=== PATIENT | female | born 1965 | race Hispanic/Latino ===

== ENCOUNTER 2016-12-02 00:14 | Emergency (ER) | payer OTHER ==
[~2016-12-02] VITALS: Ht 167.6 cm; Wt 83.0 kg
[~2016-12-02 00:14] MED LIST: ADVAIR 250/501 DISK IH; ANTIVERT25 MG PO; BACTRIM,SEPT1 TABLET PO; FIORICET 50-301 EACH PO; KEFLEX500 MG PO; PROMETHAZINE HC25 M1 PO; TESSALON PERLE100 MG PO; VENTOLIN HFA18 GM IH
[2016-12-02 01:00] LABS: HEMATOCRIT 37.1 % (36.0-46.0); MCH 27.6 PG (29.0-34.0); MCHC 33.2 G/DL (30.0-36.0); MCV 83.2 FL (83-99); MEAN PLAT.VOLUME 9.5 uM^3 (9.5-12.4); PLATELET COUNT 331 K/uL (156-360); RBC DIS.WIDTH-CV 13.7 % (11.8-14.6); RBC DIS.WIDTH-SD 41.7 % (39-53); RED BLOOD COUNT 4.46 M/uL (3.80-5.20); WHITE BLOOD COUNT 11.2 K/uL (4.1-10.2)
[2016-12-02 01:14] LABS: CHLORIDE 111 mEq/L (99-109); POTASSIUM 4.1 mEq/L (3.7-5.4); SODIUM 142 mEq/L (136-147)
[2016-12-02 01:16] LABS: GLUCOSE 117 mg/dL (70-99)
[2016-12-02 01:17] LABS: ANION GAP 12 MEQ/L (2-14)
[2016-12-02 01:18] LABS: TOTAL BILIRUBIN 0.2 mg/dL (0.0-1.0)
[2016-12-02 01:20] LABS: ALKALINE PHOSPHATASE 122 IU/L (3-129); GFR ESTIMATE (CALCULATED) > 59 mL/min/
[2016-12-02 01:21] LABS: UREA NITROGEN (BUN) 17 mg/dL (9-23)
[2016-12-02 01:23] LABS: LIPASE 39 U/L (1.0-51.0)
[2016-12-02 01:32] LABS: QUANTITATIVE HCG < 4.0 MIU/ML
[2016-12-02 01:34] LABS: TROP-I INTERPRETATION NEGATIVE; TROPONIN-I < 0.01 ng/mL (0.0-0.30)
[2016-12-02 03:06] LABS: ADD MIUA? YES; BILIRUBIN NEGATIVE; BLOOD SMALL; COLOR YELLOW ((YELLOW)); GLUCOSE (STRIP) NEGATIVE; KETONES NEGATIVE; LEUKOCYTES NEGATIVE; NITRITE NEGATIVE; PROTEIN (STRIP) NEGATIVE; SPECIFIC GRAVITY 1.025 (1.000-1.030); UROBILINOGEN 0.2 MG/DL (0.2-1.0)
[2016-12-02 03:14] LABS: ADD MEDTOX COMMENT Y; AMPHETAMINE NEGATIVE (500 ng/mL); BARBITURATES NEGATIVE (200 ng/mL); BENZODIAZEPINES NEGATIVE (150 ng/mL); COCAINE NEGATIVE (150 ng/mL); INTERNAL CONTROLS VALID? YES; METHADONE NEGATIVE (200 ng/mL); METHAMPHETAMINE NEGATIVE (500 ng/mL); OPIATES (MORPHINE) NEGATIVE (100 ng/mL); OXYCODONE NEGATIVE (100 ng/mL); PHENCYCLIDINE NEGATIVE (25 ng/mL); PROPOXYPHENE NEGATIVE (300 ng/mL); THC CANNABINOIDS PRESUMPTIVE POSITIVE (50 ng/mL); TRICYCLIC ANTIDEPRESSANTS NEGATIVE (300 ng/mL)
[2016-12-02 03:18] LABS: BACTERIA RARE /HPF; EPITHELIAL CELLS RARE /HPF; HYALINE CASTS 0-5 /LPF; MUCUS TRACE /LPF; UCUL ADDED? NO; WHITE BLOOD CELLS 0-5 /HPF (0-5)
[2016-12-02 03:38] VITALS: BP 124/92
== END 2016-12-02 03:37 | disposition home or self-care (01) ==
LOC: EME 00:14
PROVIDERS: Emergency Medicine
DX: R51 Headache (principal); R55 Syncope and collapse; E86.0 Dehydration; F12.10 Cannabis abuse, uncomplicated; R06.00 Dyspnea, unspecified; M54.2 Cervicalgia; R53.1 Weakness; R20.0 Anesthesia of skin; R31.9 Hematuria, unspecified; Z91.81 History of falling; J45.909 Unspecified asthma, uncomplicated; F17.200 Nicotine dependence, unspecified, uncomplicated
CPT/HCPCS: 70450; 71020; 80053; 81003; 83690; 84484; 84702; 84999; 85027; 93005; 99281; 99284; J3030

== ENCOUNTER 2017-01-09 15:07 | Emergency (ER) | payer OTHER ==
[~2017-01-09] VITALS: Ht 170.2 cm; Wt 82.0 kg
[2017-01-09 17:32] LABS: HEMATOCRIT 36.8 % (36.0-46.0); MCH 27.7 PG (29.0-34.0); MCHC 33.2 G/DL (30.0-36.0); MCV 83.4 FL (83-99); MEAN PLAT.VOLUME 9.2 uM^3 (9.5-12.4); PLATELET COUNT 376 K/uL (156-360); RBC DIS.WIDTH-CV 14.4 % (11.8-14.6); RBC DIS.WIDTH-SD 43.8 % (39-53); RED BLOOD COUNT 4.41 M/uL (3.80-5.20); WHITE BLOOD COUNT 10.2 K/uL (4.1-10.2)
[2017-01-09 17:32] LABS: ADD MIUA? YES; BILIRUBIN NEGATIVE; BLOOD NEGATIVE; COLOR YELLOW ((YELLOW)); GLUCOSE (STRIP) NEGATIVE; KETONES NEGATIVE; LEUKOCYTES NEGATIVE; NITRITE NEGATIVE; PROTEIN (STRIP) NEGATIVE; UROBILINOGEN 0.2 MG/DL (0.2-1.0)
[2017-01-09] MEDS ORDERED: LATUDA40 MG PO ×2 (17:42→17:44)
[2017-01-09 17:43] LABS: CHLORIDE 107 mEq/L (99-109); POTASSIUM 3.8 mEq/L (3.7-5.4); SODIUM 139 mEq/L (136-147)
[2017-01-09] MEDS ORDERED: ZOLPIDEM TARTRA10 MG PO (17:43)
[2017-01-09] MEDS ORDERED: CLONAZEPAM0.5 MG PO (17:43)
[2017-01-09 17:45] LABS: GLUCOSE 87 mg/dL (70-99)
[2017-01-09 17:46] LABS: ANION GAP 8 MEQ/L (2-14)
[2017-01-09 17:48] LABS: GFR ESTIMATE (CALCULATED) > 59 mL/min/
[2017-01-09 17:49] LABS: UREA NITROGEN (BUN) 11 mg/dL (9-23)
[2017-01-09 17:49] LABS: BACTERIA NONE SEEN /HPF; EPITHELIAL CELLS RARE /HPF; MUCUS TRACE /LPF; RED BLOOD CELLS 0-5 /HPF (0-5); UCUL ADDED? NO; WHITE BLOOD CELLS 0-5 /HPF (0-5)
[2017-01-09 17:56] LABS: QUANTITATIVE HCG < 4.0 MIU/ML
[2017-01-09 18:00] VITALS: BP 118/93
[2017-01-10] MEDS ORDERED: NAPROSYN500 MG PO (20:07)
[2017-01-10] MEDS ORDERED: BACTROBAN OINTM22 GM TP (20:07)
== END 2017-01-09 22:00 | disposition left against medical advice (07) ==
LOC: EME 15:07
DX: N83.201 Unspecified ovarian cyst, right side (principal); R10.2 Pelvic and perineal pain; F31.9 Bipolar disorder, unspecified; J45.909 Unspecified asthma, uncomplicated; Z88.6 Allergy status to analgesic agent; F17.200 Nicotine dependence, unspecified, uncomplicated
CPT/HCPCS: 74176; 76856; 80048; 81003; 84702; 85027

== ENCOUNTER 2017-01-10 17:40 | Emergency (ER) | payer OTHER ==
[~2017-01-10] VITALS: Ht 172.7 cm; Wt 83.2 kg
[~2017-01-10 17:40] MED LIST changes: +CLONAZEPAM0.5 MG PO; +LATUDA40 MG PO; +ZOLPIDEM TARTRA10 MG PO
[2017-01-10 18:30] LABS: ADD MIUA? YES; BILIRUBIN NEGATIVE; BLOOD LARGE; COLOR YELLOW ((YELLOW)); GLUCOSE (STRIP) NEGATIVE; KETONES NEGATIVE; LEUKOCYTES NEGATIVE; NITRITE NEGATIVE; PROTEIN (STRIP) 100; SPECIFIC GRAVITY 1.017 (1.000-1.030); UROBILINOGEN 0.2 MG/DL (0.2-1.0)
[2017-01-10 18:34] LABS: BACTERIA RARE /HPF; EPITHELIAL CELLS 4+ /HPF; MUCUS TRACE /LPF; UCUL ADDED? NO; WHITE BLOOD CELLS 0-5 /HPF (0-5)
[2017-01-10 19:58] LABS: MCHC 33.3 G/DL (30.0-36.0); MCV 84.2 FL (83-99); MEAN PLAT.VOLUME 9.2 uM^3 (9.5-12.4); PLATELET COUNT 405 K/uL (156-360); RBC DIS.WIDTH-CV 14.5 % (11.8-14.6); RBC DIS.WIDTH-SD 44.2 % (39-53); RED BLOOD COUNT 4.75 M/uL (3.80-5.20); WHITE BLOOD COUNT 9.5 K/uL (4.1-10.2)
[2017-01-10 20:06] LABS: CHLORIDE 109 mEq/L (99-109); POTASSIUM 4.2 mEq/L (3.7-5.4); SODIUM 143 mEq/L (136-147)
[2017-01-10] MEDS ORDERED: BACTROBAN OINTM22 GM TP (20:07)
[2017-01-10] MEDS ORDERED: NAPROSYN500 MG PO (20:07)
[2017-01-10 20:08] LABS: GLUCOSE 95 mg/dL (70-99)
[2017-01-10 20:09] LABS: ANION GAP 9 MEQ/L (2-14)
[2017-01-10 20:10] LABS: TOTAL BILIRUBIN 0.2 mg/dL (0.0-1.0)
[2017-01-10 20:12] LABS: ALKALINE PHOSPHATASE 136 IU/L (3-129); GFR ESTIMATE (CALCULATED) > 59 mL/min/
[2017-01-10 20:13] LABS: UREA NITROGEN (BUN) 12 mg/dL (9-23)
[2017-01-10 21:15] VITALS: BP 120/67
[2017-01-11 12:19] LABS: CHLAMYDIA TRACHOMATIS NEGATIVE; NEISSERIA GONORRHOEAE NEGATIVE
== END 2017-01-10 21:14 | disposition home or self-care (01) ==
LOC: EME 17:40
PROVIDERS: Nurse Practitioner Family
DX: N95.0 Postmenopausal bleeding (principal); R10.2 Pelvic and perineal pain; N83.209 Unspecified ovarian cyst, unspecified side; Z78.0 Asymptomatic menopausal state; J45.909 Unspecified asthma, uncomplicated; F31.9 Bipolar disorder, unspecified; F17.200 Nicotine dependence, unspecified, uncomplicated; Z88.6 Allergy status to analgesic agent
CPT/HCPCS: 80053; 81003; 85027; 87210; 87491; 87591; 99281; 99284

== ENCOUNTER 2017-03-24 13:14 | Emergency (ER) | payer OTHER ==
[~2017-03-24] VITALS: Ht 170.2 cm; Wt 77.0 kg
[~2017-03-24 13:14] MED LIST changes: +BACTROBAN OINTM22 GM TP; +NAPROSYN500 MG PO
[2017-03-24 14:47] LABS: HEMATOCRIT 40.8 % (36.0-46.0); MCH 27.6 PG (29.0-34.0); MCHC 33.1 G/DL (30.0-36.0); MCV 83.4 FL (83-99); MEAN PLAT.VOLUME 9.3 uM^3 (9.5-12.4); PLATELET COUNT 384 K/uL (156-360); RBC DIS.WIDTH-CV 14.1 % (11.8-14.6); RBC DIS.WIDTH-SD 42.8 % (39-53); RED BLOOD COUNT 4.89 M/uL (3.80-5.20)
[2017-03-24 14:54] LABS: CHLORIDE 108 mEq/L (99-109); POTASSIUM 3.8 mEq/L (3.7-5.4); SODIUM 140 mEq/L (136-147)
[2017-03-24 14:57] LABS: GLUCOSE 121 mg/dL (70-99)
[2017-03-24 14:58] LABS: ANION GAP 13 MEQ/L (2-14)
[2017-03-24 14:59] LABS: TOTAL BILIRUBIN 0.3 mg/dL (0.0-1.0)
[2017-03-24 15:00] LABS: ALKALINE PHOSPHATASE 134 IU/L (3-129); GFR ESTIMATE (CALCULATED) > 59 mL/min/
[2017-03-24 15:01] LABS: UREA NITROGEN (BUN) 14 mg/dL (9-23)
[2017-03-24 15:04] LABS: LIPASE 23 U/L (1.0-51.0)
[2017-03-24 16:10] LABS: ADD MIUA? YES; BILIRUBIN NEGATIVE; BLOOD NEGATIVE; COLOR YELLOW ((YELLOW)); GLUCOSE (STRIP) NEGATIVE; KETONES NEGATIVE; LEUKOCYTES NEGATIVE; NITRITE NEGATIVE; PROTEIN (STRIP) NEGATIVE; SPECIFIC GRAVITY 1.019 (1.000-1.030); UROBILINOGEN 0.2 MG/DL (0.2-1.0)
[2017-03-24 16:18] LABS: BACTERIA RARE /HPF; EPITHELIAL CELLS RARE /HPF; HYALINE CASTS 0-5 /LPF; MUCUS 2+ /LPF; RED BLOOD CELLS 0-5 /HPF (0-5); WHITE BLOOD CELLS 0-5 /HPF (0-5)
[2017-03-24 16:33] LABS: CASTS PRESENT /LPF
[2017-03-24 16:34] LABS: CRYSTALS NONE SEEN
[2017-03-24] MEDS ORDERED: LIDOCAINE20 MG/1 M5 PO (16:36)
[2017-03-24] MEDS ORDERED: ZOFRAN ODT4 MG PO (16:36)
[2017-03-24] MEDS ORDERED: MAALOX MAXIMUM355 ML PO (16:36)
[2017-03-24 16:48] VITALS: BP 112/72
== END 2017-03-24 16:48 | disposition home or self-care (01) ==
LOC: EME 13:14
PROVIDERS: Nurse Practitioner Family
DX: R11.2 Nausea with vomiting, unspecified (principal); R19.7 Diarrhea, unspecified; K12.1 Other forms of stomatitis; J45.909 Unspecified asthma, uncomplicated; E11.9 Type 2 diabetes mellitus without complications; Z87.891 Personal history of nicotine dependence
CPT/HCPCS: 80053; 81003; 83690; 85027; 87493; 87506; 99281; 99284; J1885; J7030

== ENCOUNTER 2017-12-05 10:03 | Emergency (ER) | payer OTHER ==
[~2017-12-05] VITALS: Ht 167.6 cm; Wt 79.6 kg
[~2017-12-05 10:03] MED LIST changes: +LIDOCAINE20 MG/1 M5 PO; +MAALOX MAXIMUM355 ML PO; +ZOFRAN ODT4 MG PO
[2017-12-05] MEDS ORDERED: ULTRACET1 TABLET PO (10:50)
[2017-12-05 11:00] VITALS: BP 148/116
== END 2017-12-05 11:02 | disposition home or self-care (01) ==
LOC: EME 10:03
DX: S50.01XA Contusion of right elbow, initial encounter (principal); W22.8XXA Striking against or struck by other objects, initial encounter; J45.909 Unspecified asthma, uncomplicated; F31.9 Bipolar disorder, unspecified; Z88.6 Allergy status to analgesic agent
CPT/HCPCS: 73080; 99281; 99283